=== PATIENT | female | born 1950 | race Caucasian/White ===

== ENCOUNTER 2019-09-13 05:34 | Emergency (ER) | payer OTHER ==
[~2019-09-13] VITALS: Ht 167.6 cm; Wt 72.6 kg
[~2019-09-13 05:34] MED LIST: ASPI81CH PO; DOCU100 PO; FLUO20 PO; HYDACE5 PO; IBUP800 PO; Imitrex PO; LAMO100 PO; LEVSOD75 PO; METO25ER PO; NIFE30ER PO; OMEP20ER PO; OXYACE5T PO; RXOXYACE PO; SULTRIDS PO; VENL75ER; [UNRECOGNIZED DRUG - CODE]; [UNRECOGNIZED DRUG - OTHER]
[2019-09-13] MEDS ORDERED: Lisinopril-Hct1 EAC4 PO (05:40)
== END 2019-09-13 07:30 | disposition home or self-care (01) ==
LOC: ER 05:34
DX: R04.0 Epistaxis (principal); E03.9 Hypothyroidism, unspecified; F32.9 Major depressive disorder, single episode, unspecified; Z79.899 Other long term (current) drug therapy; Z79.82 Long term (current) use of aspirin
CPT/HCPCS: 99283

== ENCOUNTER 2020-01-17 18:55 | Emergency (ER) | payer OTHER ==
[~2020-01-17] VITALS: Ht 167.6 cm; Wt 72.6 kg
[~2020-01-17 18:55] MED LIST changes: +Lisinopril-Hct1 EAC4 PO
== END 2020-01-17 21:06 | disposition home or self-care (01) ==
LOC: ER 18:55
DX: S66.912A Strain of unspecified muscle, fascia and tendon at wrist and hand level, left hand, initial encounter (principal); Z79.82 Long term (current) use of aspirin; Z79.899 Other long term (current) drug therapy; F32.9 Major depressive disorder, single episode, unspecified; E03.9 Hypothyroidism, unspecified; I10 Essential (primary) hypertension; W11.XXXA Fall on and from ladder, initial encounter
CPT/HCPCS: 29125; 73100; 73130; 99283-25; A9270; L3917

== ENCOUNTER 2021-11-21 10:34 | Day surgery (SDC) | payer OTHER ==
[~2021-11-21] VITALS: Ht 165.1 cm; Wt 73.8 kg
--- NOTE | 2021-11-21 11:20 | NUR ---
11/21/21 1120 Tiana Boss GTT: 1110 [place]: 1111
--- NOTE | 2021-11-21 12:51 | NUR ---
11/21/21 1251 ADELINE SINHA pt noted EYE FEELING SCRATCHY PRIOR TO D/C. 1,000MG TYLENOL GIVEN PER DOCTORS ORDERS.
== END 2021-11-21 12:45 | disposition home or self-care (01) ==
LOC: ORSCSDS 10:34
PROVIDERS: Ophthalmology
PROC: 08RJ3JZ Replacement of Right Lens with Synthetic Substitute, Percutaneous Approach (ICD-10-PCS; principal; 2021-11-21 12:00)
DX: H25.11 Age-related nuclear cataract, right eye (principal); E03.9 Hypothyroidism, unspecified; Z79.899 Other long term (current) drug therapy
CPT/HCPCS: A9270; J2001; J2250; J3010; J3301; J7040; V2632

== ENCOUNTER 2025-01-25 07:37 | Day surgery (SDC) | payer OTHER ==
[~2025-01-25] VITALS: Ht 165.1 cm; Wt 72.5 kg
[~2025-01-25 07:37] MED LIST changes: +EPINEPhrine HCl 1 MG / ML 30ML Vial ONE
[2025-01-25] MEDS ORDERED: CLAR500 PO (08:16)
[2025-01-25] MEDS ORDERED: PRED20 PO (08:16)
[2025-01-25] MEDS ORDERED: Tranexamic Acid 100 ML IV ONE (08:20)
[2025-01-25 08:57] LABS: Alanine Aminotransfer (ALT/SGP 29.0 U/L (12-78); Albumin, Blood 3.6 g/dL (3.4-5.0); Albumin/Globulin Ratio 1.1 (0.8-1.8); Anion Gap 5.0 mmol/L (3-11); Aspartate Aminotrans (AST/SGOT 27.0 U/L (12-37); Bilirubin, Total 0.6 mg/dL (0.1-1.0); Blood Urea Nitrogen 21.0 mg/dL (8-24); CO2, Blood 28.0 mmol/L (21-32); Calcium, Blood 8.8 mg/dL (8.5-10.1); Chloride, Blood 110.0 mmol/L (98-108); Creatinine, Blood 0.83 mg/dL (0.40-1.00); Globulin, Blood 3.3 g/dL (2.2-4.0); Glucose, Blood 77.0 mg/dL (70-99); Potassium, Blood 4.3 mmol/L (3.5-5.5); Sodium, Blood 139.0 mmol/L (136-145); Total Protein, Blood 6.9 g/dL (6.4-8.2)
[2025-01-25] MEDS ORDERED: FentaNYL Citrate 50 MCG/ML 2 ML Injection ONE (10:08)
[2025-01-25] MEDS ORDERED: Midazolam HCl 1MG / ML 2ML Vial ONE (10:08)
[2025-01-25] MEDS ORDERED: Dexamethasone Sod Phos 10 MG/ML 1ML VIAL ONE (10:08)
[2025-01-25] MEDS ORDERED: SuccINYLCHOLINE Chloride 100 MG/5 ML 5MLSYR ONE (10:08)
[2025-01-25] MEDS ORDERED: Lidocaine 1%-Epineph 1:200000 30 ML SDV INJ ONE (10:43)
[2025-01-25] MEDS ORDERED: ePHEDrine Sulfate 50 MG/ML 1ML Injection ONE (11:03)
[2025-01-25] MEDS ORDERED: EPINEPhrine HCl 1 MG / ML 30ML Vial ONE (12:45)
[2025-01-25] MEDS ORDERED: Ondansetron HCl 2 MG / ML 2ML Vial ONE ×2 (12:52→13:16)
[2025-01-25 13:30] VITALS: BP 143/79
--- NOTE | 2025-01-25 14:39 | NUR ---
01/25/25 1439 [place] pal[place] PT DENIES PAIN AND NAUSEA AT THIS TIME. PT AGREEABLE TO D/C HOME WITH SISTER.
== END 2025-01-25 14:40 | disposition home or self-care (01) ==
LOC: ORSCSDS 07:37
PROVIDERS: Otolaryngology
PROC: 09BL4ZZ Excision of Nasal Turbinate, Percutaneous Endoscopic Approach (ICD-10-PCS; principal; 2025-01-25 09:15)
PROC: 09BM8ZZ Excision of Nasal Septum, Via Natural or Artificial Opening Endoscopic (ICD-10-PCS; principal; 2025-01-25 09:15)
PROC: 09DR4ZZ Extraction of Left Maxillary Sinus, Percutaneous Endoscopic Approach (ICD-10-PCS; principal; 2025-01-25 09:15)
PROC: 09SL8ZZ Reposition Nasal Turbinate, Via Natural or Artificial Opening Endoscopic (ICD-10-PCS; principal; 2025-01-25 09:15)
PROC: 8E09XBZ Computer Assisted Procedure of Head and Neck Region (ICD-10-PCS; principal; 2025-01-25 09:15)
PROC: 09DQ4ZZ Extraction of Right Maxillary Sinus, Percutaneous Endoscopic Approach (ICD-10-PCS; principal; 2025-01-25 09:15)
DX: J32.8 Other chronic sinusitis (principal); J34.2 Deviated nasal septum; J34.3 Hypertrophy of nasal turbinates; J34.89 Other specified disorders of nose and nasal sinuses; F43.10 Post-traumatic stress disorder, unspecified; E03.9 Hypothyroidism, unspecified; E78.5 Hyperlipidemia, unspecified; F32.A Depression, unspecified; Z79.899 Other long term (current) drug therapy
CPT/HCPCS: 80053; 88305; 93005; 93010; C2625; J0165; J0330; J1100; J2250; J2405; J2704; J3010; J7120